=== PATIENT | male | born 1965 | race Caucasian/White ===

== ENCOUNTER 2023-07-19 14:28 | Emergency (ER) | payer MEDICARE, SELFPAY ==
[2023-07-19 14:42] VITALS: BP 131/93; PULSE 103; RESP 16; TEMP 36.9; O2SAT 99; BMI 35.0
--- NOTE | 2023-07-19 16:58 | ED_ITS ---
HPI - Chest Pain General Chief Complaint: Chest Pain Stated Complaint: Chest pressure, confusion Time Seen by Provider: 07/19/23 16:31 History of Present Illness HPI narrative: This 58-year-old male comes in reporting episodes of chest pressure that have been current randomly on and off over the past month or so. He states that he has had some other similar episodes like this less frequently over the past couple years. He states that these episodes are reproduced with activity or e xertion. He begins to feel chest pressure and feeling of shortness of breath with lightheadedness. He does not get diaphoretic. His symptoms seem to be relieved with rest. However there are other times when these same symptoms occur independent of exertional activity. He states that he quit smoking about 10 years ago. He is taking medicine for cholesterol and blood pressure. He does not have diabetes and there is no strong family history of heart disease. Related Data Allergies Allergy/AdvReac Type Severity Reaction Status Date / Time amoxicillin Allergy Unknown Verified 07/19/23 14:47 bee venom protein (honey bee) Allergy Unknown Verified 07/19/23 14:47 metronidazole Allergy Unknown Verified 07/19/23 14:47 Review of Systems Status of ROS Reports: 10 or more systems reviewed and unremarkable except as noted in History and below Narrative Constitutional: No fevers, no weight gain or loss. Eyes: No discharge. No vision changes. HENT: No congestion, no sore throat, no ear pain. Cardiovascular: No palpitations. Chest tightness as described above. Respiratory: No shortness of breath, no wheezes, no cough. Gastrointestinal: No abdominal pain, no vomiting, no diarrhea. Genitourinary: No dysuria, no hematuria. Musculoskeletal: Normal range of motion. Skin: No rashes, no pruritis. Neurological: No dizziness, weakness, sensory change, speech change. Endo/Heme/Allergies: No bruising or bleeding. No polydipsia. Pysch: no suicidality, no anxiety, no insomnia. All other systems reviewed and are negative. [facility] Medical History (Updated 07/19/23 @ 19:15 by Tomas Langston MD) Migraine headache ?G43.909 - Migraine, unspecified, not intractable, without status migrainosus (ICD-10) Chest pain ?R07.9 - Chest pain, unspecified (ICD-10) Arthritis ?M19.90 - Unspecified osteoarthritis, unspecified site (ICD-10) Hernia ?K46.9 - Unspecified abdominal hernia without obstruction or gangrene (ICD- 10) Fibromyalgia ?M79.7 - Fibromyalgia (ICD-10) Right shoulder pain ?M25.511 - Pain in right shoulder (ICD-10) Surgical History (Updated 12/07/22 @ 13:16 by Jose Ramon Hernandez) History of carpal tunnel release ?Z98.890 - Other specified postprocedural states (ICD-10) S/P spinal surgery ?Z98.890 - Other specified postprocedural states (ICD-10) Social History Smoking Status: Never smoker Non-prescribed substance use: denies use Exam Narrative Exam Narrative: Constitutional: Well-developed, well-nourished, no acute distress. HEENT: Normocephalic, atraumatic. Neck: Normal range of motion. Nontender. Supple. Heart: Regular. No murmurs. Borderline tachycardia. Intact distal pulses. Lungs: Clear to auscultation. No chest discomfort. No wheezes, rhonchi, or rales. Abdomen: Normal bowel sounds. Nontender. No rebound tenderness. Genitalia: Deferred. Back: No midline tenderness. Normal range of motion. Extremities: Normal range of motion. No injury. Skin: Intact. No rash. Warm. No erythema or pallor. Neurologic: No altered sensation. No weakness. Alert and oriented. Psychiatric: No suicidality. No anxiety or depression. No insomnia. Nursing notes and vitals signs are reviewed. Const Vital Signs, click to edit/add: Vital Signs - 24 hr 07/19/23 14:42 07/19/23 17:20 Temperature 98.5 F Pulse Rate [Right Pulse Oximeter] 103 H 81 Respiratory Rate 16 Blood Pressure [Right Upper Arm] 131/93 H 142/81 H Pulse Oximetry 99 96 Oxygen Delivery Method Room Air Room Air Course Vital Signs Vital signs: Initial Vital Signs Temperature 98.5 F 07/19/23 14:42 Temperature Source Temporal Artery Scan 07/19/23 14:42 Pulse Rate 103 H 07/19/23 14:42 Pulse Rhythm Regular 07/19/23 14:42 Pulse Strength 3+ Normal 07/19/23 14:42 Respiratory Rate 16 07/19/23 14:42 Blood Pressure 131/93 H 07/19/23 14:42 Blood Pressure Mean 105 07/19/23 14:42 Blood Pressure Position Sitting 07/19/23 14:42 Pulse Oximetry 99 07/19/23 14:42 Oxygen Delivery Method Room Air 07/19/23 14:42 Vital Signs Temperature 98.5 F 07/19/23 14:42 Pulse Rate 103 H 07/19/23 14:42 Respiratory Rate 16 07/19/23 14:42 Blood Pressure 131/93 H 07/19/23 14:42 Pulse Oximetry 99 07/19/23 14:42 Oxygen Delivery Method Room Air 07/19/23 14:42 Temperature 98.5 F 07/19/23 14:42 Pulse Rate 81 07/19/23 17:20 Respiratory Rate 16 07/19/23 14:42 Blood Pressure 142/81 H 07/19/23 17:20 Pulse Oximetry 96 07/19/23 17:20 Oxygen Delivery Method Room Air 07/19/23 17:20 Medications Administered Medications: Discontinued Medications Generic Name Dose Route Start Last Admin Trade Name Emile PRN Reason Stop Dose Admin Aspirin 324 mg 07/19/23 16:56 07/19/23 17:08 Aspirin 81 Mg Tab.Chew PO 07/19/23 16:57 324 mg ONCE ONE Administration MDM - Chest Pain MDM Narrative Medical decision making narrative: This patient comes in reporting chest pressure with some associated lightheadedness and shortness of breath over the past month or more. He states that it seems to come and go but does state that it is reliable to occur with exertional activity. He states that he was shoveling snow this morning and felt some of these same symptoms. He arrives here with normal vital signs with heart rate close to 100 beats per minute initially. Repeat check showed a heart rate around 80. I did draw labs in obtain a EKG. EKG shows normal sinus rhythm at borderline for tachycardia and with no ST or T-wave abnormalities. Lab results show a troponin at 0 and undetectable D-dimer. Other labs from complete blood count and basic metabolic panel are also reassuring. I relayed these results to the patient but indicated concern about his exertional symptoms which could be an indicator of stable angina. The patient did receive 4 baby aspirin here and I advised him to take a baby aspirin daily. He does have a follow-up with his primary physician in 4 days and I strongly recommended a stress test or stress echocardiogram. His symptoms are exertional and there is yet suspicion of coronary artery disease. Lab Data Labs: Lab Results 07/19/23 Range/Units 15:14 WBC 10.96 (4.50-11.00) K/uL RBC 5.41 (4.30-5.90) m/uL Hgb 16.0 (13.5-17.5) gm/dL Hct 47.3 (37.0-53.0) % MCV 87 (80-100) fL MCH 30 (26-34) pg MCHC 34 (32-36) gm/dL RDW Coeff of Antoinette 13.3 (11.5-15.5) % Plt Count 257 (140-440) K/uL Neut % (Auto) 63.1 (42.0-72.0) % Lymph % (Auto) 23.5 (20-44) % [place] % (Auto) 10.4 (0.0-11.0) % Eos % (Auto) 1.0 (0.0-7.0) % Baso % (Auto) 0.4 (0.0-3.0) % Neut # (Auto) 6.92 (1.7-7.0) K/uL Lymph # (Auto) 2.58 (0.90-2.90) K/uL [place] # (Auto) 1.10 H (0.00-0.90) K/UL Eos # (Auto) 0.11 (0.00-0.50) K/uL Baso # (Auto) 0.04 (0.00-0.30) K/uL Abs Immat Gran (auto) 0.17 (0.00-0.30) K/uL Imm/Tot Granulo (auto) 1.6 % D-Dimer Quant (PE/DVT) < 0.22 (0.00-0.50) ug/ml Sodium 139 (135-149) mmol/L Potassium 3.9 (3.6-5.1) mmol/L Chloride 105 (96-114) mmol/L Carbon Dioxide 25 (20-32) mmol/L Anion Gap 9 (7-15) mEq/L BUN 21 (7-30) mg/dL Creatinine 1.1 (0.5-1.5) mg/dL Estimated Creat Clear 83.73 Estimated GFR 78 ml/min Glucose 95 (60-115) mg/dL Calcium 10.3 (8.4-10.6) mg/dL POC Troponin I 0.00 L (0.01-0.04) ng/ml ECG Data Attestation: I personally reviewed and interpreted this ECG as follows: Interpretation: Borderline tachycardia. There are no specific ST or T-wave abnormalities. Discharge Plan Discharge Clinical Impression: Chest pain Patient Disposition: Home, Self-Care Condition: Stable Additional Instructions: Take aspirin 81 mg daily. Follow-up with primary physician as scheduled. A stress test or stress echocardiogram is strongly recommended. Return if symptoms are recurrent or worsening. Follow Up/Referrals: Juan Samuel MD [Primary Care Provider] - Stand Alone Forms: DocOnYou Info Instructions
[2023-07-19] MEDS: ASPIRIN 81 MG TAB.CHEW 324 MG PO (17:08)
[2023-07-19 17:20] VITALS: BP 142/81; PULSE 81; O2SAT 96
[2023-07-19 17:24] LABS: Basophils Absolute Auto 0.04 K/uL (0.00-0.30); Basophils Percent Auto 0.4 % (0.0-3.0); Eosinophils Absolute Auto 0.11 K/uL (0.00-0.50); Hematocrit 47.3 % (37.0-53.0); Immature Granulocytes Abs Auto 0.17 K/uL (0.00-0.30); Immature Granulocytes Pct Auto 1.6 %; Lymphocytes Absolute Auto 2.58 K/uL (0.90-2.90); Lymphocytes Percent Auto 23.5 % (20-44); Mean Corpuscular HGB Conc 34 gm/dL (32-36); Mean Corpuscular Hemoglobin 30 pg (26-34); Mean Corpuscular Volume 87 fL (80-100); Monocytes Percent Auto 10.4 % (0.0-11.0); Neutrophils Absolute Auto 6.92 K/uL (1.7-7.0); Neutrophils Percent Auto 63.1 % (42.0-72.0); Platelet Count* 257 K/uL (140-440); RDW Coefficient of Variation % 13.3 % (11.5-15.5); Red Blood Count 5.41 m/uL (4.30-5.90); White Blood Count* 10.96 K/uL (4.50-11.00)
[2023-07-19 17:26] LABS: Slide Review Reflex No
[2023-07-19 17:51] LABS: D Dimer Quantitative* < 0.22 ug/ml (0.00-0.50)
[2023-07-19 18:44] LABS: Chloride* 105 mmol/L (96-114); Sodium* 139 mmol/L (135-149)
[2023-07-19 18:45] LABS: Potassium* 3.9 mmol/L (3.6-5.1)
[2023-07-19 18:47] LABS: Anion Gap 9 mEq/L (7-15); Carbon Dioxide* 25 mmol/L (20-32); Creatinine* 1.1 mg/dL (0.5-1.5); Est. Creatinine Clearance* 83.73; Estimated Glomerular Filt Rate 78 ml/min
[2023-07-19 18:48] LABS: Blood Urea Nitrogen* 21 mg/dL (7-30); Calcium* 10.3 mg/dL (8.4-10.6); Glucose* 95 mg/dL (60-115)
== END 2023-07-19 19:26 | disposition home or self-care (01) ==
PROVIDERS: Emergency Provider Emergency Medicine Emergency Medical Services; PCP Surgery
DX: R07.9 Chest pain, unspecified (principal)
CPT/HCPCS: 36415; 80048; 84484; 85025; 85379; 93005; 99284; A9270